=== PATIENT | female | born 1970 | race African-American/Black ===

== ENCOUNTER 2016-09-22 22:09 | Emergency (ER) | payer OTHER ==
[~2016-09-22] VITALS: Ht 157.5 cm; Wt 92.1 kg
[~2016-09-22 22:09] MED LIST: DIPH25CA58 PO; PRED10TA16 PO
[2016-09-22 22:25] VITALS: BP 157/85
[2016-09-22] MEDS ORDERED: TRAM-48 PO (23:09)
[2016-09-22] MEDS ORDERED: METH4TAB2 PO (23:09)
[2016-09-22] MEDS ORDERED: METH-37 PO (23:09)
--- NOTE | 2016-09-22 23:09 | PHYS DOC ---
Past Medical History Past Medical History: Asthma, Sinusitis, Other Additional Past Medical Histor: allergies Past Surgical History: Other Additional Past Surgical Histo: bilateral knees. 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 Patient denies any injury. Denies any loss of bowel bladder function. She states the pain is worse on ambulation. Patient denies any urinary symptoms. Communication was done by writing as well as via patient's significant other who uses sign language. Review of Systems Review of Systems Constitutional: Denies fever or chills [] Eyes: Denies change in visual acuity, redness, or eye pain [] HENT: Deaf and inability to speak GI: Denies abdominal pain, nausea, vomiting, bloody stools or diarrhea [] : Denies dysuria or hematuria [] Musculoskeletal: back pain Integument: Denies rash or skin lesions [] Neurologic: Denies headache, focal weakness or sensory changes [] Endocrine: Denies polyuria or polydipsia [] Allergies Allergies Allergies Coded Allergies Type Severity Reaction Last Updated Verified No Known Drug Allergies 03/10/13 No Physical Exam Physical Exam Constitutional: Well developed, well nourished, no acute distress, non-toxic appearance. [] HENT: Normocephalic, atraumatic, bilateral external ears normal, oropharynx moist, no oral exudates, nose normal. Patient is deaf and can not speak Eyes: PERRLA, EOMI, conjunctiva normal, no discharge. [] Neck: Normal range of motion, no tenderness, supple, no stridor. [] Abdomen: Bowel sounds normal, soft, no tenderness, no masses, no pulsatile masses. [] Skin: Warm, dry, no erythema, no rash. [] Back: Overweight patient with diffuse paraspinal muscle tenderness that right lumbar spine, no midline lumbar spine tenderness, no CVA tenderness. [] Extremities: No tenderness, no cyanosis, no clubbing, ROM intact, no edema. [] Neurologic: Alert and oriented X 3, normal motor function, normal sensory function, no focal deficits noted. [] Psychologic: Affect normal, judgement normal, mood normal. [] Current Patient Data Vital Signs Vital Signs Date Time Temp Pulse Resp B/P (MAP) Pulse Ox O2 Delivery O2 Flow Rate FiO2 09/22/16 22:25 98.7 66 18 100 Room Air 98.7 EKG EKG [] Radiology/Procedures Radiology/Procedures [] Course & Med Decision Making Course & Med Decision Making Pertinent Labs and Imaging studies reviewed. (See chart for details) This is a 45-year-old female patient deaf and can not speak who presents today complaining of moderate low back pain. Patient denies any trauma. She has been taking Advil with no relief. Recommended a muscle relaxer. Patient was asking for oxycodone which she has taken from the significant other. I wrote her prescription for Medrol dosepak, Ultram, Robaxin. Informed her she can follow- up with the PCP as soon as possible for any other medication she wants especially oxycodone. Dragon Disclaimer Dragon Disclaimer This electronic medical record was generated, in whole or in part, using a voice recognition dictation system. Departure Departure Impression: Primary Impression: Low back pain Disposition: 01 HOME, SELF-CARE Condition: STABLE Referrals: UNKNOWN PCP NAME (PCP) Follow-up with your doctor as soon as possible Patient Instructions: Back Pain, Adult Additional Instructions: You were seen for acute low back pain. Take the prescribed medicines as ordered. Follow-up with your doctor as soon as possible. Apply heat to your low back. Do not drive or operate machinery on the pain medicine Scripts Methylprednisolone (MEDROL) 4 Mg Tab.ds.pk 1 PKG PO UD, #1 PKG Prov: ZACGARRY XIN 09/22/16 Tramadol Hcl (ULTRAM) 50 Mg Tablet 1 TAB PO Q6HRS, #30 TAB Prov: GARRY FRANK APRN 09/22/16 Methocarbamol (ROBAXIN) 500 Mg Tablet 1 TAB PO TID, #30 TAB Prov: ZACGARRY XIN 09/22/16 Problem Qualifiers Primary Impression: Low back pain Chronicity: acute Back pain laterality: right Sciatica presence: without sciatica Qualified Codes: M54.5 - Low back pain GARRY FRANK XIN Sep 22, 2016 23:09
[2016-09-22] MEDS ORDERED: CYCLOBENZAPRINE 10 MG TABLET. PO ONE (23:15)
[2016-09-22] MEDS ORDERED: oxyCODONE/APAP 5/325 1 TAB TABLET PO ONE (23:15)
== END 2016-09-22 23:14 | disposition home or self-care (01) ==
LOC: ER 22:09
DX: M54.5 Low back pain (principal); J45.909 Unspecified asthma, uncomplicated; H91.90 Unspecified hearing loss, unspecified ear
CPT/HCPCS: 99283

== ENCOUNTER 2020-10-21 22:49 | Emergency (ER) | payer OTHER ==
[~2020-10-21] VITALS: Ht 165.1 cm; Wt 150.0 kg
[~2020-10-21 22:49] MED LIST changes: +METH-37 PO; +METH4TAB2 PO; +TRAM-48 PO
[2020-10-22 01:28] VITALS: BP 192/90
[2020-10-22] MEDS ORDERED: IPRATRPIUM/ALBUTEROL 0.5/2.5MG 3 ML NEBU. NEB ONE ×3 (03:15)
[2020-10-22] MEDS ORDERED: DEXAMETHASONE 4 MG TABLET PO ONE (03:15)
--- NOTE | 2020-10-22 04:54 | RAD ---
Chest AP portable at 0221: Reason for examination: Cough. The heart size is normal. Mediastinum is unremarkable. Lung rodriguez are clear. No acute bony abnormali ties are seen. Impression: No acute cardiopulmonary disease. Electronically signed by: Zulma Bonds MD (10/22/2020 4:51 AM) [facility]
[2020-10-22] MEDS ORDERED: PRED20TA PO (05:32)
[2020-10-22] MEDS ORDERED: BENZ100C PO (05:32)
--- NOTE | 2020-10-22 05:41 | PHYS DOC ---
Past Medical History Past Medical History: Asthma, Sinusitis, Other Additional Past Medical Histor: obesity,keloids Past Surgical History: Other Additional Past Surgical Histo: bilateral knees. l shoulder Smoking Status: Never Smoker Alcohol Use: None Drug Use: None General Adult EDM: Chief Complaint: Congestion HPI: HPI: 49-year-old female past medical history of asthma, presents to the ED with her , (patient consents to his/her/their knowledge and involvement in pts' medical care), complaints of cough and runny nose for the past 5 days with associated subjective fever and shortness of breath. Reports no relief with Robitussin, Symbicort and her Ventolin inhaler. Has been vaccinated for Covid since June. Declines Covid testing. Is concerned about her chest x-ray and is asking if that can be sent to her primary care physician Dr. Corin Salazar. Patient does report her asthma is acting up. Patient is deaf and communication was used via lip reading and handwritten notes. Review of Systems: Review of Systems: Constitutional: Denies fever or chills. [] Eyes: Denies change in visual acuity. [] HENT: Denies nasal congestion or sore throat. [] Respiratory: Denies hemoptysis or increased work of breathing Cardiovascular: Denies chest pain or edema. [] GI: Denies nausea or vomiting, : Denies dysuria or vaginal bleeding Musculoskeletal: Denies back pain or joint pain. [] Integument: Denies rash or diaphoresis Neurologic: Denies headache or neck pain Endocrine: Denies polyuria or polydipsia. [] Lymphatic: Denies swollen glands. [] Psychiatric: Denies depression or anxiety. [] Heart Score: C/O Chest Pain: No Risk Factors: Risk Factors: DM, Current or recent (<one month) smoker, HTN, HLP, family history of CAD, obesity. Risk Scores: Score 0 - 3: 2.5% MACE over next 6 weeks - Discharge Home Score 4 - 6: 20.3% MACE over next 6 weeks - Admit for Clinical Observation Score 7 - 10: 72.7% MACE over next 6 weeks - Early Invasive Strategies Current Medications: Current Medications Medications (Trade) Dose Ordered Sig/Uzair Start Time Stop Time Status Last Admin Dose Admin Albuterol/ Ipratropium (Duoneb) 3 ml 1X ONCE 10/22/20 03:15 10/22/20 03:16 DC 10/22/20 03:15 3 ML Dexamethasone (Decadron) 10 mg 1X ONCE 10/22/20 03:15 10/22/20 03:16 DC 10/22/20 03:49 10 MG Allergies: Allergies: Allergies Coded Allergies Type Severity Reaction Last Updated Verified No Known Drug Allergies 03/10/13 No Physical Exam: PE: Constitutional: Well developed, well nourished, no acute distress, non-toxic appearance. HENT: Normocephalic, atraumatic, Eyes: EOMI, conjunctiva normal, no discharge. Neck: Normal range of motion, supple, Cardiovascular: S1/2 present, regular rhythm Lungs & Thorax: Speaking in full sentences, bilateral equal chest rise, no tachypnea or increased work of breathing, audible wheezing Skin: Warm, dry, no erythema, no rash. [] Back: No tenderness, no CVA tenderness. [] Extremities: No tenderness, no cyanosis, Neurologic: Alert and oriented X 3, normal motor function, normal sensory function, no focal deficits noted. [] Psychologic: Affect normal, judgement normal, mood normal. [] Current Patient Data: Vital Signs: Vital Signs Date Time Temp Pulse Resp B/P (MAP) Pulse Ox O2 Delivery O2 Flow Rate FiO2 10/22/20 03:59 99 Room Air 10/22/20 01:28 98.9 80 22 192/90 (109) 98.9 EKG: EKG: [] Radiology/Procedures: Radiology/Procedures: IMAGING REPORT Signed PATIENT: GAIL SMITH MACCOUNT: [id number] : 1970 LOCATION: ER AGE: 49 SEX: F EXAM STATUS: REG ER ORD. PHYSICIAN: JAN JURADO DO REASON: cough PROCEDURE: CHEST AP ONLY Chest AP portable at 0221: Reason for examination: Cough. The heart size is normal. Mediastinum is unremarkable. Lung rodriguez are clear. No acute bony abnormalities are seen. Impression: No acute cardiopulmonary disease. Electronically signed by: Deon Loomis MD (10/22/2020 4:51 AM) [facility] DICTATED and SIGNED BY: DEON LOOMIS MD DATE: 10/22/20 [id number] 0 Course & Med Decision Making: Course & Med Decision Making Pertinent Labs and Imaging studies reviewed. (See chart for details) Concern for asthma exacerbation, improved with medications in the emergency department. Repeat blood pressure at discharge is 149/81. Suspect upper respiratory infection for the past 5 days. Will discharge home with strict ED return precautions were given for increased work of breathing, chest pain, hemoptysis, leg swelling, syncope neurologic deficits. Encouraged urgent outpatient follow-up with PMD and neurology for definitive management. Life-threatening processes were considered but are low suspicion at this time, given history, physical exam and ED workup. Pt was educated on all prescription medications and adverse effects. All patient's questions were answered and pt was stable at time of discharge. Life/limb-threatening differential includes but is not limited to, foreign body, infection/sepsis, congestive heart failure or pulmonary edema, lung cancer intrathoracic mass, bronchoconstriction, asthma/COPD/lung disease exacerbation, pneumothorax or hemothorax, pulmonary emboli, autoimmune/neurologic disease or toxidrome. I have spoken with the patient and/or caregivers. I explained the patient's condition, diagnoses and treatment plan based on the information available to me at this time. I have answered the patient and/or caregiver's questions and addressed any concerns. The patient and/or caregivers have a good understanding of patient's diagnosis, condition and treatment plan as can be expected at this point. Vital signs have been stable. Patient's condition is stable and appropriate for discharge from the emergency department. Patient will pursue further outpatient evaluation with primary care physician or other designated or consulting physician as outlined in the discharge instructions. The patient and/or caregivers are agreeable to this plan of care and follow-up instructions have been explained in detail. The patient and/or caregivers have received these instructions in written form and have expressed an understanding of the discharge instructions. The patient and/or caregivers are aware that any significant change of condition or worsening of symptoms should prompt immediate return to this or the closest emergency department or call to 911. Rudy Disclaimer: Rudy Disclaimer: This electronic medical record was generated, in whole or in part, using a voice recognition dictation system. Departure Departure Impression: Primary Impression: Asthma exacerbation Additional Impressions: URI (upper respiratory infection) Cough Disposition: HOME / SELF CARE / HOMELESS Condition: STABLE Referrals: CORIN SALAZAR MD (PCP) Follow-up with your primary care physician in 24 to 48 hours OR FOLLOW UP WITH FAMILY MEDICINE: [address], [address] [place] [address] Patient Instructions: Asthma, Adult, Cough, Adult Additional Instructions: FOLLOW UP WITH PULMONOLOGY: FOR DEFINITIVE MANAGEMENT of asthma [facility] [address] [place] [address] EMERGENCY DEPARTMENT GENERAL DISCHARGE INSTRUCTIONS Thank you for coming to [facility] Emergency Department (ED) today and trusting us with you care. We trust that you had a positive experience in our Emergency Department. If you wish to speak to the department management, you may call the Director at [phone]. YOUR FOLLOW UP INSTRUCTIONS ARE FOLLOWS: 1. Do you have a private Doctor? If you do not have a private doctor, please ask for a resource list of physicians or clinics that may be able to assist you with follow up care. 2. The Emergency Physicain has interpreted your x-rays. The X-Ray specialist will also review them. If there is a change in the findings, you will be notified in 48 hours when at all possible. 3. A lab test or culture has been done, your results will be reviewed and you will be notified if you need a change in treatment. ADDITIONAL INSTRUCTIONS AND INFORMATION: 1. Your care today has been supervised by a physician who is specially trained in emergency care. Many problems require more than one evaluation for a complete diagnosis and treatment. We recommend that you schedule your follow up appointment as recommended to ensure complete treatment of you illness or injury. If you are unable to obtain follow up care and continue to have a problem, or if your condition worsens, we recommend that you return to the ED. 2. We are not able to safely determine your condition over the phone nor are we able to give sound medical advice over the phone. For these safety reasons, if you call for medical advice we will ask you to come to the ED for further evaluation. 3. If you have any questions regarding these discharge instructions please call the ED at [phone]. SAFETY INFORMATION: In the interest of safety, wellness, and injury prevention; we encourage you to wear your sealbelt, if you smoke; quite smoking, and we encourage family to use a prote ctive helmet for bicycling and other sporting events that present an increased risk for head injury. IF YOUR SYMPTOMS WORSEN OR NEW SYMPTOMS DEVELOP, OR YOU HAVE CONCERNS ABOUT YOUR CONDITION; OR IF YOUR CONDITION WORSENS WHILE YOU ARE WAITING FOR YOUR FOLLOW UP APPOINTMENT; EITHER CONTACT YOUR PRIMARY CARE DOCTOR, THE PHYSICIAN WHOSE NAME AND NUMBER YOU WERE GIVEN, OR RETURN TO THE ED IMMEDIATELY. Scripts Benzonatate (TESSALON PERLE) 100 Mg Capsule 1 CAP PO TID for cough for 7 Days, #21 CAP Prov: JAN JURADO DO 10/22/20 Prednisone (PREDNISONE) 20 Mg Tablet 2 TAB PO DAILY for 4 Days, #8 TAB Prov: JAN JURADO DO 10/22/20 JAN JURADO DO Oct 22, 2020 05:41
== END 2020-10-22 06:25 | disposition home or self-care (01) ==
LOC: ER 22:49
DX: J45.901 Unspecified asthma with (acute) exacerbation (principal); J06.9 Acute upper respiratory infection, unspecified
CPT/HCPCS: 71045; 94640; 99285-25